=== PATIENT | male | born 1960 | race Caucasian/White ===

== ENCOUNTER → 2017-04-03 | Outpatient (CLI) | payer BC | LOC: ZCOL.LAB 14:32 | DX: Z02.89 Encounter for other administrative examinations (principal) ==

== ENCOUNTER → 2017-04-03 | Outpatient (CLI) | payer BC | LOC: COL.RAD 14:30 | DX: J98.59 Other diseases of mediastinum, not elsewhere classified (principal) | CPT/HCPCS: Q9967 ==